=== PATIENT | male | born 1980 | race Hispanic/Latino ===

== ENCOUNTER 2020-11-15 18:19 | Emergency (ER) | payer OTHER ==
[~2020-11-15] VITALS: Ht 170.2 cm; Wt 113.4 kg
[2020-11-15 18:21] VITALS: BP 139/97
[2020-11-15] MEDS ORDERED: IBUP-2070 PO (21:45)
[2020-11-15] MEDS ORDERED: CYCL10TA7 PO (21:45)
[2020-11-15] MEDS ORDERED: LIDOP TD (21:46)
[2020-11-15] MEDS ORDERED: ORPHENADRINE CITRATE 30 MG/ML ML ONE (21:59)
[2020-11-15] MEDS ORDERED: LIDOCAINE 5% TOPICAL PATCH TP ONE ×2 (21:59→22:00)
[2020-11-15] MEDS ORDERED: KETOROLAC 60 MG VIAL (30MG/ML) ONE (21:59)
[2020-11-15] MEDS ORDERED: ORPHENADRINE CITRATE 30 MG/ML ML IM ONE (22:00)
[2020-11-15] MEDS ORDERED: KETOROLAC 60 MG VIAL (30MG/ML) IM ONE (22:00)
[2020-11-15 22:38] VITALS: BP 142/67
== END 2020-11-15 22:39 | disposition home or self-care (01) ==
LOC: EDH 18:19
DX: S46.912A Strain of unspecified muscle, fascia and tendon at shoulder and upper arm level, left arm, initial encounter (principal); E78.00 Pure hypercholesterolemia, unspecified; F41.9 Anxiety disorder, unspecified; I10 Essential (primary) hypertension; Z79.1 Long term (current) use of non-steroidal anti-inflammatories (NSAID); W20.8XXA Other cause of strike by thrown, projected or falling object, initial encounter; Y93.89 Activity, other specified; Y92.89 Other specified places as the place of occurrence of the external cause; Y99.8 Other external cause status
CPT/HCPCS: 73030; 96372 ×2; 99284; J1885; J2360